=== PATIENT | female | born 1985 | race Caucasian/White ===

== ENCOUNTER 2018-04-08 11:59 | Emergency (ER) | payer OTHER ==
[~2018-04-08] VITALS: Ht 160 cm; Wt 79.8 kg
[2018-04-08 11:59] VITALS: BP 130/81
[2018-04-08] MEDS ORDERED: DEXAMETHASONE SOD PHOSPHATE 4 MG/ML VIAL ONE (12:19)
[2018-04-08] MEDS ORDERED: DEXAMETHASONE SOD PHOSPHATE 4 MG/ML VIAL IM ONE (12:30)
== END 2018-04-08 12:19 | disposition home or self-care (01) ==
LOC: ER 12:09
DX: J03.90 Acute tonsillitis, unspecified (principal)
CPT/HCPCS: 96372; 99283; A4606; J1100; Z7610

== ENCOUNTER 2018-05-03 09:58 | Emergency (ER) | payer OTHER ==
[~2018-05-03] VITALS: Ht 160 cm; Wt 79.4 kg
[2018-05-03 10:02] VITALS: BP 106/67
== END 2018-05-03 10:22 | disposition home or self-care (01) ==
LOC: ER 09:58
DX: J03.90 Acute tonsillitis, unspecified (principal); Z98.890 Other specified postprocedural states
CPT/HCPCS: A4606; Z7610

== ENCOUNTER 2021-04-10 16:55 | Emergency (ER) | payer MEDICAID, OTHER ==
[~2021-04-10] VITALS: Ht 162.6 cm; Wt 93.0 kg
--- NOTE | 2021-04-10 17:11 | NUR ---
The patient bibs for c/o dysuria and itching when urination x 10 days. Rates pain 2/10 upon urination. Abdomen soft and non-distended. No bladder distension noted. Will continue to monitor the patient.
--- NOTE | 2021-04-10 17:44 | NUR ---
urine collected and sent to the lab
[2021-04-10 17:52] LABS: BASOPHILS % (AUTO) 0.4 % (0.0-2.0); EOSINOPHILS % (AUTO) 1.3 % (0.0-6.0); HEMATOCRIT 41 % (33-45); HEMOGLOBIN 13.5 g/dL (11.5-14.8); LYMPHOCYTES # (AUTO) 2.2 K/uL (0.8-4.8); LYMPHOCYTES % (AUTO) 21.9 % (20.0-44.0); MEAN CORPUSCULAR HGB CONC 33 g/dl (31.0-36.0); MEAN CORPUSCULAR VOLUME 85 fL (82-100); MONOCYTES # (AUTO) 0.6 K/uL (0.1-1.30); NEUTROPHILS # (AUTO) 6.9 K/uL (1.8-8.9); NEUTROPHILS % (AUTO) 70.4 % (43.0-81.0); PLATELET COUNT (AUTO) 277 K/uL (150-450); RED BLOOD CELL COUNT(AUTO) 4.81 MIL/uL (4.0-5.2); WHITE BLOOD COUNT (AUTO) 9.9 K/uL (4.3-11.0)
[2021-04-10 17:57] LABS: BILIRUBIN,URINE NEGATIVE (NEGATIVE); COLOR,URINE YELLOW (YELLOW); LEUKOCYTE ESTERASE ,URINE NEGATIVE (NEGATIVE); NITRITE, URINE NEGATIVE (NEGATIVE); PH,URINE 5.5 (5.0-8.0); PROTEIN,URINE NEGATIVE (NEGATIVE); UGLUCOSE NEGATIVE (NEGATIVE); UROBILINOGEN,URINE 0.2 EU/dL (0.2)
[2021-04-10 18:03] LABS: CALCIUM, SERUM 9.1 mg/dL (8.5-10.1); CREATININE 0.8 mg/dL (0.6-1.3); POTASSIUM 3.3 mmol/L (3.5-5.1)
[2021-04-10 18:09] LABS: ALBUMIN 3.7 g/dL (3.4-5.0); BILIRUBIN,DIRECT 0.1 mg/dL (0.0-0.2); BILIRUBIN,TOTAL 0.3 mg/dL (0.2-1.0); TOTAL PROTEIN, SERUM 7.7 g/dL (6.4-8.2)
--- NOTE | 2021-04-10 18:35 | NUR ---
The patient is taken to CT
--- NOTE | 2021-04-10 18:49 | NUR ---
The patient is back from CT
[2021-04-10 19:16] VITALS: BP 122/74
--- NOTE | 2021-04-10 19:16 | NUR ---
Patient discharged to home in stable condition. Written and verbal after care instructions given. Patient verbalizes understanding of instruction.
== END 2021-04-10 19:16 | disposition home or self-care (01) ==
LOC: ER 17:00
DX: R10.31 Right lower quadrant pain (principal); Z98.890 Other specified postprocedural states
CPT/HCPCS: 36415; 80048-TC; 80076-TC; 83690-TC; 84703-TC; 85025-TC

== ENCOUNTER 2024-07-09 09:38 | Emergency (ER) | payer MEDICAID ==
[~2024-07-09] VITALS: Ht 160 cm; Wt 93.9 kg
[2024-07-09] MEDS: IV NS 0.9% 1,000 ML BAG IV ONE (10:00)
[2024-07-09] MEDS ORDERED: methylPREDNISolone SOD SUCC 125 MG/2ML VIAL ONE (10:04)
[2024-07-09] MEDS ORDERED: FAMOTIDINE/PF INJ 20 MG/2 ML VIAL IV ONE (10:04)
[2024-07-09] MEDS: methylPREDNISolone SOD SUCC 125 MG/2ML VIAL IV ONE (10:05)
[2024-07-09] MEDS: FAMOTIDINE/PF INJ 40 MG in IV D5W 250 ML IV ONE (10:05)
[2024-07-09 11:42] LABS: APPEARANCE,URINE CLOUDY (CLEAR); BILIRUBIN,URINE 1+ (NEGATIVE); BLOOD, URINE 3+ Ery/uL (NEGATIVE); COLOR,URINE DARK YELLOW (YELLOW); KETONES,URINE TRACE mg/dL (NEGATIVE); LEUKOCYTE ESTERASE ,URINE 2+ (NEGATIVE); NITRITE, URINE POSITIVE (NEGATIVE); PROTEIN,URINE 2+ mg/dl (NEGATIVE); UGLUCOSE NEGATIVE (NEGATIVE)
[2024-07-09 11:47] LABS: BACTERIA,URINE Rare /HPF (None Seen); RBC,URINE 81-100 /HPF (0-2); SQUAMOUS EPITHELIAL CELL,UR Few /HPF (None Seen)
[2024-07-09 11:48] LABS: ADD URINE CULTURE YES
[2024-07-09] MEDS ORDERED: PRED20TA PO (13:33)
[2024-07-09] MEDS ORDERED: CEPH-570 PO (13:33)
[2024-07-09] MEDS ORDERED: FAMO-131 PO (13:33)
[2024-07-09] MEDS ORDERED: EPIN0.3P3 IM (13:33)
[2024-07-09] MEDS ORDERED: DIPH25CA83 PO (13:33)
[2024-07-09 13:42] VITALS: BP 99/60; TEMP 98.5; O2SAT 99
== END 2024-07-09 13:44 | disposition home or self-care (01) ==
LOC: ER 09:40
DX: T78.40XA Allergy, unspecified, initial encounter (principal); N39.0 Urinary tract infection, site not specified; L50.9 Urticaria, unspecified; Z98.890 Other specified postprocedural states; X58.XXXA Exposure to other specified factors, initial encounter
CPT/HCPCS: 99285; 96374; 96361; 96375; 87086; 81001; J3490; J2919; J7030